=== PATIENT | female | born 1970 | race Caucasian/White ===

== ENCOUNTER 2017-07-11 06:00 | Emergency (ER) | payer BC ==
[~2017-07-11] VITALS: Ht 167.6 cm; Wt 54.4 kg
--- NOTE | 2017-07-11 06:07 | PHYS DOC ---
Past Medical History Past Medical History: No Pertinent History Past Surgical History: No Surgical History Alcohol Use: Occasionally Drug Use: None Adult General Chief Complaint Chief Complaint: FLANK PAIN HPI HPI Patient is a 46 year old female who presents with right-sided flank pain. She states it started around 2:30 this morning. She got up she thought a bowel movement and urination would help but it did not. She states is a constant pain that kind of waxes and wanes but never goes away. She states currently is an 8 out of 10. She feels nauseated. She denies any vomiting. She denied any blood in her bowel movement but had a little bit on the toilet paper. She she has a family history of kidney stones, but states she's never been diagnosed with any stones herself. Review of Systems Review of Systems Constitutional: Denies fever or chills [] Eyes: Denies change in visual acuity, redness, or eye pain [] HENT: Denies nasal congestion or sore throat [] Respiratory: Denies cough or shortness of breath [] Cardiovascular: No additional information not addressed in HPI [] GI: Positive for abdominal pain, nausea, Denies vomiting, bloody stools or diarrhea [] : Denies dysuria or hematuria [] Musculoskeletal: Denies back pain or joint pain [] Integument: Denies rash or skin lesions [] Neurologic: Denies headache, focal weakness or sensory changes [] Endocrine: Denies polyuria or polydipsia [] All other systems were reviewed and found to be within normal limits, except as documented in this note. Current Medications Current Medications Current Medications Medications (Trade) Dose Ordered Sig/[facility] Start Time Stop Time Status Last Admin Dose Admin Ketorolac Tromethamine (Toradol) 30 mg 1X ONCE 07/11/17 08:30 07/11/17 08:32 DC Morphine Sulfate 4 mg PRN Q15MIN PRN 07/11/17 06:30 07/12/17 06:29 07/11/17 08:26 4 MG Ondansetron HCl (Zofran) 4 mg 1X ONCE 07/11/17 07:00 07/11/17 07:01 DC 07/11/17 06:37 4 MG Sodium Chloride 1,000 ml @ 1,000 mls/hr 1X ONCE 07/11/17 07:45 07/11/17 08:44 07/11/17 07:45 1,000 MLS/HR Tamsulosin HCl (Flomax) 0.4 mg 1X ONCE 07/11/17 08:30 07/11/17 08:32 DC Allergies Allergies Allergies Coded Allergies Type Severity Reaction Last Updated Verified No Known Drug Allergies 01/24/15 No Physical Exam Physical Exam Constitutional: Well developed, well nourished, no acute distress, non-toxic appearance. [] HENT: Normocephalic, atraumatic, bilateral external ears normal, oropharynx moist, no oral exudates, nose normal. [] Eyes: PERRLA, EOMI, conjunctiva normal, no discharge. [] Neck: Normal range of motion, no tenderness, supple, no stridor. [] Cardiovascular:Heart rate regular rhythm, no murmur [] Lungs & Thorax: Bilateral breath sounds clear to auscultation [] Abdomen: Bowel sounds normal, soft, tender to palpation in the right flank, no rebound or guarding, no masses, no pulsatile masses. [] Skin: Warm, dry, no erythema, no rash. [] Back: No tenderness, no CVA tenderness. [] Extremities: No tenderness, no cyanosis, no clubbing, ROM intact, no edema. [] Neurologic: Alert and oriented X 3, normal motor function, normal sensory function, no focal deficits noted. [] Psychologic: Affect normal, judgement normal, mood normal. [] Current Patient Data Vital Signs Vital Signs Date Time Temp Pulse Resp B/P (MAP) Pulse Ox O2 Delivery O2 Flow Rate FiO2 07/11/17 08:26 18 Room Air 07/11/17 07:58 66 130/73 (92) 99 07/11/17 06:08 97.6 97.6 Lab Values Laboratory Tests Test 07/11/17 06:12 07/11/17 06:20 White Blood Count 13.6 x10^3/uL (4.0-11.0) H Red Blood Count 4.46 x10^6/uL (3.50-5.40) Hemoglobin 13.8 g/dL (12.0-15.5) Hematocrit 41.3 % (36.0-47.0) Mean Corpuscular Volume 93 fL (79-100) Mean Corpuscular Hemoglobin 31 pg (25-35) Mean Corpuscular Hemoglobin Concent 34 g/dL (31-37) Red Cell Distribution Width 12.8 % (11.5-14.5) Platelet Count 268 x10^3/uL (140-400) Neutrophils (%) (Auto) 86 % (31-73) H Lymphocytes (%) (Auto) 7 % (24-48) L Monocytes (%) (Auto) 6 % (0-9) Eosinophils (%) (Auto) 0 % (0-3) Basophils (%) (Auto) 0 % (0-3) Neutrophils # (Auto) 11.7 x10^3uL (1.8-7.7) H Lymphocytes # (Auto) 1.0 x10^3/uL (1.0-4.8) Monocytes # (Auto) 0.8 x10^3/uL (0.0-1.1) Eosinophils # (Auto) 0.1 x10^3/uL (0.0-0.7) Basophils # (Auto) 0.1 x10^3/uL (0.0-0.2) Platelet Estimate Pending Prothrombin Time 12.7 SEC (11.7-14.0) Prothrombin Time INR 1.0 (0.8-1.1) PTT 30 SEC (24-38) Sodium Level 138 mmol/L (136-145) Potassium Level 3.6 mmol/L (3.5-5.1) Chloride Level 101 mmol/L (98-107) Carbon Dioxide Level 25 mmol/L (21-32) Anion Gap 12 (6-14) Blood Urea Nitrogen 14 mg/dL (7-20) Creatinine 1.2 mg/dL (0.6-1.0) H Estimated GFR (Cockcroft-Gault) 48.2 Glucose Level 133 mg/dL (70-99) H Calcium Level 9.4 mg/dL (8.5-10.1) Total Bilirubin 0.6 mg/dL (0.2-1.0) Direct Bilirubin 0.1 mg/dL (0.0-0.2) Aspartate Amino Transferase (AST) 17 U/L (15-37) Alanine Aminotransferase (ALT) 16 U/L (14-59) Alkaline Phosphatase 52 U/L (46-116) Creatine Kinase 57 U/L (26-192) Creatine Kinase MB (Mass) < 0.5 ng/mL (0.0-3.6) Creatine Kinase MB Relative Index % (0-4) Total Protein 7.8 g/dL (6.4-8.2) Albumin 4.3 g/dL (3.4-5.0) Lipase 205 U/L (73-393) Urine Collection Type Unknown Urine Color Yellow Urine Clarity Cloudy Urine pH 6.0 Urine Specific [place] 1.025 Urine Protein 30 mg/dL (NEG-TRACE) Urine Glucose (UA) Negative mg/dL (NEG) Urine Ketones (Stick) Trace mg/dL (NEG) Urine Blood Large (NEG) Urine Nitrite Negative (NEG) Urine Bilirubin Negative (NEG) Urine Urobilinogen Dipstick 0.2 mg/dL (0.2 mg/dL) Urine Leukocyte Esterase Small (NEG) Urine RBC 11-20 /HPF (0-2) Urine WBC 1-4 /HPF (0-4) Urine Bacteria Moderate /HPF (0-FEW) Serum Test, Qualitative Negative (NEG) Urine Opiates Screen Neg (NEG) Urine Methadone Screen Neg (NEG) Urine Barbiturates Neg (NEG) Urine Phencyclidine Screen Neg (NEG) Urine Amphetamine/Methamphetamine Neg (NEG) Urine Benzodiazepines Screen Neg (NEG) Urine Cocaine Screen Neg (NEG) Urine Cannabinoids Screen Neg (NEG) Urine Ethyl Alcohol Neg (NEG) Laboratory Tests 07/11/17 06:12 Laboratory Tests 07/11/17 06:12 EKG EKG [] Radiology/Procedures Radiology/Procedures [facility] [address] [place] [address] IMAGING REPORT Signed PATIENT: ALE ALLEN ACCOUNT: [id number] : 1970 LOCATION: ER AGE: 46 SEX: F EXAM STATUS: REG ER ORD. PHYSICIAN: DARIUS CASTILLO MD REASON: stone protocol PROCEDURE: CT ABDOMEN PELVIS WO CONTRAST CT ABDOMEN PELVIS WO CONTRAST History:Right flank pain starting this a.m. Technique: Noncontrast CT imaging was performed of the abdomen and pelvis, multiplanar reconstruction images submitted. Exposure: One or more of the following individualized dose reduction techniques were utilized for this exam: 1. Automated exposure control.2. Adjustment of the mA and/or KV according to patient size.3. Use of iterative reconstruction technique. Comparison: None Findings: There is mild right hydroureteronephrosis. There is 5 mm calculus in the distal right ureter in the pelvis just proximal to the ureterovesical junction. There are approximately 6 right renal calculi, largest 2 to 3 mm. There is no left hydronephrosis. There are multiple left renal calculi, at least 20. Largest of these superiorly measures up to 6 to 7 mm. There is no abnormality limited visualized lung bases. Accurate evaluation of the abdominal visceral organs is limited without intravenous contrast. There is no obvious focal abnormality of the liver, spleen, pancreas. Gallbladder is present without obvious intraluminal abnormality by CT. There is no adrenal nodularity. Accurate evaluation of bowel is limited without oral contrast. There is no significant free air. Normal appendix is visualized. There is some density in the right parametrial region asymmetric with the left, uncertain if due to component of the ovary, adjacent small quantity of free fluid. Impression: 1.There is mild right hydroureteronephrosis, 5 mm calculus in the distal right ureter just proximal to the ureterovesical junction. There are multiple bilateral renal calculi, more numerous on the left. 2. There is a small quantity of nonspecific free fluid in the right pelvis. There is relative fullness of the right parametrial region although may be due to component of the ovary. 3. There is no CT evidence of acute appendicitis. DICTATED and SIGNED BY: ROB FINLEY MD DATE: 07/11/17 0809 CC: DARIUS CASTILLO MD; NO PCP ~ Impressions: Kidney stone Course & Med Decision Making Course & Med Decision Making Pertinent Labs and Imaging studies reviewed. (See chart for details) CT scan confirms multiple gallstones with one in the UVP on the right. Her pain is now under control. She's received 2 L normal saline. She did receive 30 g IV Toradol 1 and 0.4 mg Flomax 1 by mouth. She is to follow-up with urology as an outpatient. Return precautions given. She is agreeable plan and being discharged in stable condition this time. She's being discharged with Flomax, [place] and Zofran. She is instructed not to drink or drive while taking narcotic pain medicine. Dragon Disclaimer Dragon Disclaimer This electronic medical record was generated, in whole or in part, using a voice recognition dictation system. Departure Departure Impression: Primary Impression: Kidney stone on right side Disposition: 01 HOME, SELF-CARE Condition: STABLE Referrals: NO PCP (PCP) Patient Instructions: Kidney Stones Additional Instructions: You have several kidney stones. You have one on the right that is trying to pass. You will need to drink a few extra glasses of water over the next several days to help push out the kidney stone. You will also need take Flomax which is a medicine to help dilate the ureter to allow the stone to pass. Your being discharged with narcotic pain meds called [place]. Please follow the instructions on the bottle. Please don't drink alcohol drive your car while taking these medicines. You can also take Zofran which is an oral dissolvable tablet for nausea. You will need to follow-up with urology. You can follow-up with [facility] urology group at [facility] there addresses [address] [place] [address]. The phone number is [phone]. Return back to ER for severe pain, uncontrolled nausea vomiting, or other concerns. Scripts Ondansetron (ZOFRAN ODT) 4 Mg Tab.rapdis 1 TAB SL Q8HRS Y for NAUSEA/VOMITING, #10 TAB Prov: DARIUS CASTILLO MD 07/11/17 Hydrocodone/Apap 5-325 (NORCO 5-325 TABLET) 1 Each Tablet 1-2 TAB PO PRN Q6HRS Y for PAIN, #20 TAB 0 Refills Prov: DARIUS CASTILLO MD 07/11/17 Tamsulosin Hcl (FLOMAX) 0.4 Mg Cap.er.24h 1 CAP PO DAILY, #14 CAP 3 Refills Prov: DARIUS CASTILLO MD 07/11/17 DARIUS CASTILLO MD Jul 11, 2017 06:07
[2017-07-11] MEDS: MORPHINE SULFATE 4 MG/ML DISP.SYRIN. IV/SQ PRN ×2 (06:38→08:26)
[2017-07-11 06:42] LABS: BASO # 0.1 x10^3/uL (0.0-0.2); BASO % 0 % (0-3); EOS % 0 % (0-3); HEMATOCRIT 41.3 % (36.0-47.0); HEMOGLOBIN 13.8 g/dL (12.0-15.5); LYMPH % 7 % (24-48); MEAN CORPUSCULAR HEMOGLOBIN 31 pg (25-35); MEAN CORPUSCULAR HGB CONC 34 g/dL (31-37); MEAN CORPUSCULAR VOLUME 93 fL (79-100); MONO % 6 % (0-9); NEUT % 86 % (31-73); PLATELET COUNT 268 x10^3/uL (140-400); RED BLOOD COUNT 4.46 x10^6/uL (3.50-5.40); RED CELL DISTRIBUTION WIDTH 12.8 % (11.5-14.5); WHITE BLOOD COUNT 13.6 x10^3/uL (4.0-11.0)
[2017-07-11 06:49] LABS: BARBITURATES NEG (NEG); BENZODIAZEPINES NEG (NEG); CANNABINOIDS NEG (NEG); COCAINE NEG (NEG); METHADONE NEG (NEG); OPIATES NEG (NEG); PHENCYCLIDINE NEG (NEG)
[2017-07-11 06:50] LABS: CALCIUM 9.4 mg/dL (8.5-10.1); CREATININE 1.2 mg/dL (0.6-1.0); GFR 48.2; POTASSIUM 3.6 mmol/L (3.5-5.1)
[2017-07-11 06:58] LABS: ALBUMIN 4.3 g/dL (3.4-5.0); DIRECT BILIRUBIN 0.1 mg/dL (0.0-0.2); TOTAL BILIRUBIN 0.6 mg/dL (0.2-1.0); TOTAL PROTEIN 7.8 g/dL (6.4-8.2)
[2017-07-11 06:59] LABS: BILIRUBIN,URINE NEGATIVE (NEG); GLUCOSE,URINE NEGATIVE (NEG); NITRITE,URINE NEGATIVE (NEG); PROTEIN,URINE 30 mg/dL (NEG-TRACE); UROBILINOGEN,URINE 0.2 mg/dL (0.2 mg/dL)
[2017-07-11] MEDS ORDERED: IV NORMAL SALINE 1000ML BAG 1,000 ML IV SCH (07:00)
[2017-07-11] MEDS ORDERED: ONDANSETRON PF 4 MG/2 ML VIAL. IV ONE (07:00)
[2017-07-11 07:10] LABS: CKMB MASS < 0.5 ng/mL (0.0-3.6); CREATINE KINASE 57 U/L (26-192)
[2017-07-11 07:15] LABS: PROTHROMBIN TIME PATIENT 12.7 SEC (11.7-14.0)
[2017-07-11 07:18] LABS: NEG OBC SER NEG; POS OBC SER POS
[2017-07-11 07:23] LABS: BACTERIA,URINE MODERATE /HPF (0-FEW)
[2017-07-11] MEDS ORDERED: IV NORMAL SALINE 1000ML BAG 1,000 ML IV ONE (07:45)
--- NOTE | 2017-07-11 08:22 | RAD ---
CT ABDOMEN PELVIS WO CONTRAST History:Right flank pain starting this a.m. Technique: Noncontrast CT imaging was performed of the abdomen and pelvis, multiplanar reconstruction images submitted. Exposure: One or more of the following individualized dose reduction techniques were utilized for this exam: 1. Automated exposure control.2. Adjustment of the mA and/or KV according to patient size.3. Use of iterative reconstruction technique. Comparison: None Findings: There is mild right hydroureteronephrosis. There is 5 mm calculus in the distal right ureter in the pelvis just proximal to the ureterovesical junction. There are approximately 6 right renal calculi, largest 2 to 3 mm. There is no left hydronephrosis. There are multiple left renal calculi, at least 20. Largest of these superiorly measures up to 6 to 7 mm. There is no abnormality limited visualized lung bases. Accurate evaluation of the abdominal visceral organs is limited without intravenous contrast. There is no obvious focal abnormality of the liver, spleen, pancreas. Gallbladder is present without obvious intraluminal abnormality by CT. There is no adrenal nodularity. Accurate evaluation of bowel is limited without oral contrast. There is no significant free air. Normal appendix is visualized. There is some density in the right parametrial region asymmetric with the left, uncertain if due to component of the ovary, adjacent small quantity of free fluid. Impression: 1.There is mild right hydroureteronephrosis, 5 mm calculus in the distal right ureter just proximal to the ureterovesical junction. There are multiple bilateral renal calculi, more numerous on the left. 2. There is a small quantity of nonspecific free fluid in the right pelvis. There is relative fullness of the right parametrial region although may be due to component of the ovary. 3. There is no CT evidence of acute appendicitis.
[2017-07-11 08:29] VITALS: BP 126/73
[2017-07-11] MEDS ORDERED: TAMSULOSIN 0.4 MG CAP.ER.24H. PO ONE ×2 (08:30→08:33)
[2017-07-11] MEDS ORDERED: KETOROLAC 30 MG/ML INJ. IV ONE (08:30)
[2017-07-11] MEDS ORDERED: HYDR-971 PO (08:52)
[2017-07-11] MEDS ORDERED: TAMS0.4C97 PO (08:52)
[2017-07-11] MEDS ORDERED: ONDA4TAB10 SL (08:52)
[2017-07-11 10:13] LABS: PLT ESTIMATE ADEQUATE (ADEQUATE)
== END 2017-07-11 09:03 | disposition home or self-care (01) ==
LOC: ER 06:00
DX: N20.0 Calculus of kidney (principal)
CPT/HCPCS: 36415; 74176; 80048; 80076; 80307; 81001; 82553; 83690; 84703; 85007; 85025; 85610; 85730; 87086; 96361; 96374; 96375; 96376; 99285; J1885; J2270; J2405; J7030; G0479